=== PATIENT | female | born 1995 | race African-American/Black ===

== ENCOUNTER 2024-03-12 08:00 | Outpatient (CLI) | payer MEDICAID ==
[2024-03-12 17:44] LABS: BILIRUBIN,URINE NEGATIVE (NEGATIVE); GLUCOSE, URINE (UA) NEGATIVE (NEGATIVE); KETONES,URINE (UA) NEGATIVE (NEGATIVE); LEUKOCYTE ESTERASE, URINE NEGATIVE (NEGATIVE); NITRITE,URINE NEGATIVE (NEGATIVE); OCCULT BLOOD,URINE NEGATIVE (NEGATIVE); PROTEIN,URINE NEGATIVE (NEGATIVE); UROBILINOGEN,URINE 0.2 (NORMAL) E.U./dL (NORMAL)
[2024-03-12 17:48] LABS: CLARITY,URINE CLEAR (CLEAR)
[2024-03-12 18:09] LABS: BACTERIA,URINE None Seen /HPF (None Seen); RBC,URINE 0-5 /HPF (0-5); SQUAMOUS EPITHELIAL CELL,UR NONE SEEN (<= Few); WBC,URINE 0-3 /HPF (0-5)
== END 2024-03-12 23:59 | disposition home or self-care (01) ==
LOC: LAB.WC 08:00
PROVIDERS: ATTEND Nurse Practitioner
DX: Z34.80 Encounter for supervision of other normal pregnancy, unspecified trimester (principal)
CPT/HCPCS: 36415; 81001; 87086

== ENCOUNTER 2024-03-25 15:51 | Outpatient (CLI) | payer MEDICAID ==
[2024-03-25 16:18] LABS: BASOPHILS % (AUTO) 0.1 %; EOSINOPHILS # (AUTO) 0.1 10^3/uL (0.0-0.7); EOSINOPHILS % (AUTO) 0.9 %; HCT - HEMATOCRIT 35.7 % (37.0-47.0); HGB - HEMOGLOBIN 12.3 g/dL (12.0-16.0); LYMPHOCYTES # (AUTO) 2.3 10^3/uL (1.5-3.5); LYMPHOCYTES % (AUTO) 27.2 %; MEAN CORPUSCULAR HEMOGLOBIN 28.9 pg (27.0-31.0); MEAN CORPUSCULAR HGB CONC 34.5 g/dL (32.0-36.0); MEAN PLATELET VOLUME 10.6 fL (7.9-10.8); MONOCYTES # (AUTO) 0.7 10^3/uL (0.0-1.0); MONOCYTES % (AUTO) 8.2 %; NEUTROPHILS # (AUTO) 5.5 10^3/uL (1.5-6.6); NEUTROPHILS % (AUTO) 63.4 %; PLT - PLATELET COUNT 203 10^3/uL (130-450); RED BLOOD COUNT 4.25 10^6/uL (4.20-5.40); RED CELL DISTRIBUTION WIDTH 12.4 % (12.0-15.0); WHITE BLOOD COUNT 8.6 x10^3/uL (4.8-10.8)
[2024-03-25 16:25] LABS: MAGNESIUM 1.8 mg/dL (1.7-2.3)
[2024-03-25 16:29] LABS: CREATININE,URINE 74.6 mg/dL; PROTEIN/CREATININE RATIO,URINE 0.1 (<=0.2)
[2024-03-25 16:31] LABS: ALBUMIN 4.4 g/dL (3.2-5.5); ALBUMIN/GLOBULIN RATIO 1.5 (1.0-2.2); BILIRUBIN,TOTAL 0.4 mg/dL (0.2-1.0); CALCIUM 9.5 mg/dL (8.5-10.3); CREATININE 0.6 mg/dL (0.6-1.3); POTASSIUM 3.5 mmol/L (3.5-4.5); TOTAL PROTEIN 7.3 g/dL (6.4-8.9)
[2024-03-25 20:48] LABS: ESTIMATED AVERAGE GLUCOSE 85 mg/dL (70-100); HEMOGLOBIN A1c% 4.6 % (4.27-6.07)
[2024-03-26 02:08] LABS: RPR Non Reactive (Non Reactive)
[2024-03-26 03:10] LABS: HBsAG SCREEN Negative (Negative)
[2024-03-26 04:09] LABS: HIV SCREEN 4TH GENERATION Non Reactive (Non Reactive)
[2024-03-26 09:10] LABS: VARICELLA-ZOSTER AB IGG 399 index (Immune >165)
[2024-03-27 00:07] LABS: HCV AB Non Reactive (Non Reactive)
== END 2024-03-25 15:52 | disposition home or self-care (01) ==
LOC: LAB 15:51
PROVIDERS: ATTEND Obstetrics & Gynecology
DX: O99.891 Other specified diseases and conditions complicating pregnancy (principal); R53.83 Other fatigue; Z36.89 Encounter for other specified antenatal screening
CPT/HCPCS: 36415; 80053; 82570; 82728; 83036; 83735; 84156; 85025; 86592; 86762; 86787; 86803; 86850; 86900; 86901; 87340; 87389

== ENCOUNTER 2024-04-16 08:00 | Outpatient (CLI) | payer MEDICAID ==
[2024-04-16 19:06] LABS: CHLAMYDIA TRACHOMATIS DNA NEGATIVE (NEGATIVE); NEISSERIA GONORRHOEAE DNA NEGATIVE (NEGATIVE); TRICHOMONAS VAGINALIS DNA NEGATIVE (NEGATIVE)
== END 2024-04-16 23:59 | disposition home or self-care (01) ==
LOC: LAB.WC 08:00
PROVIDERS: ATTEND Obstetrics & Gynecology
DX: Z11.3 Encounter for screening for infections with a predominantly sexual mode of transmission (principal)
CPT/HCPCS: 87491; 87591; 87661

== ENCOUNTER 2024-05-07 11:11 | Outpatient (CLI) | payer MEDICAID | END 2024-05-07 11:12 | disposition home or self-care (01) | LOC: LAB 11:11 | PROVIDERS: ATTEND Obstetrics & Gynecology | DX: Z34.80 Encounter for supervision of other normal pregnancy, unspecified trimester (principal); Z36.0 Encounter for antenatal screening for chromosomal anomalies ==

== ENCOUNTER 2024-05-10 12:33 | Emergency (ER) | payer MEDICAID ==
--- NOTE | 2024-05-10 13:09 | ED Physician Documentation ---
History of Present Illness - Stated complaint Stated Complaint: numbness - Chief complaint Chief Complaint: General - Additonal information Additional information: 28-year-old female presents emergency department for right sided numbness. 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 Patient says that she has had 4 TIAs about 2 years ago she was hospitalized at a hospital in [place] for about 3 to 4 days. She is currently 14 weeks G5, P3 and says that her last TIA was not while she was . She is that she is not taking any antiplatelet medication for this history of TIA. Patient says today around 10 AM she started to experience severe worsening right numbness and right sided body weakness and started to lose her right peripheral vision. No chest pain no shortness of breath. PD PAST MEDICAL HISTORY - Past Medical History Past Medical History: No Cardiovascular: None Respiratory: None Neuro: TIA Endocrine/Autoimmune: None GI: None TICKET WRITER: None : None HEENT: None Psych: None Musculoskeletal: None Derm: None - Past Surgical History Past Surgical History: No - Present Medications Home Medications: Ambulatory Orders Medication Instructions Recorded Confirmed Aspirin [Aspirin EC] 1 tab PO DAILY 05/10/24 05/10/24 Cholecalciferol (Vitamin D3) 1 cap PO DAILY 05/10/24 05/10/24 [Vitamin D3] Ondansetron HCl 1 tab PO PRN PRN 05/10/24 05/10/24 Pnv No.95/Ferrous Fum/Folic AC 1 tab PO DAILY 05/10/24 05/10/24 [ Caplet] - Allergies Allergies/Adverse Reactions: Allergies Allergy/AdvReac Type Severity Reaction Status Date / Time No Known Drug Allergies Allergy Verified 05/10/24 12:52 - Social History Does the pt smoke?: No Smoking Status: Never smoker PD ED PE NORMAL - Vitals Vital signs reviewed: Yes - General General: Alert and oriented X 3, No acute distress, Well developed/nourished - HEENT HEENT: Atraumatic, PERRL, EOMI - Neck Neck: Supple, no meningeal sign - Cardiac Cardiac: RRR - Respiratory Respiratory: No respiratory distress - Abdomen Abdomen: Soft, Non tender - Derm Derm: Normal color, Warm and dry, No rash - Extremities Extremities: No deformity, No edema, No calf tenderness / cord - Neuro Neuro: Alert and oriented X 3 PD ED PE EXPANDED - Neuro Neuro: Alert and Oriented X 3, Normal Speech, Weakness, Abnormal sensation, Right face, RUE, RLE, Normal speech. No: Normal motor, Normal Sensation, Normal gait Results - Vitals Vitals: Vital Signs - 24 hr 05/10/24 05/10/24 05/10/24 12:46 12:52 13:48 Temperature 36.4 C L Heart Rate 81 88 93 Respiratory 20 18 17 Rate Blood Pressure 126/91 H 117/82 H 113/75 O2 Saturation 100 100 98 05/10/24 05/10/24 05/10/24 14:00 14:30 15:00 Temperature Heart Rate 73 74 100 Respiratory 22 18 18 Rate Blood Pressure 133/91 H 133/83 H 128/82 H O2 Saturation 100 98 100 05/10/24 17:07 Temperature Heart Rate 90 Respiratory 18 Rate Blood Pressure 118/76 O2 Saturation 100 Oxygen O2 Source Room air - Labs Labs: Laboratory Tests 05/10/24 05/10/24 05/10/24 13:05 13:05 13:05 WBC 8.2 RBC 3.93 L Hgb 11.6 L Hct 33.4 L MCV 85.0 MCH 29.5 MCHC 34.7 RDW 13.5 Plt Count 193 MPV 11.0 H Neut # (Auto) 5.5 Lymph # (Auto) 2.0 [place] # (Auto) 0.6 Eos # (Auto) 0.1 Baso # (Auto) 0.0 Absolute Nucleated RBC 0.00 Nucleated RBC % 0.0 PT INR Sodium 134 L Potassium 3.5 Chloride 104 Carbon Dioxide 22 Anion Gap 8.0 BUN 4 L Creatinine 0.4 L Estimated GFR (MDRD) 229 Glucose 78 Calcium 9.2 Magnesium 1.7 Total Bilirubin 0.4 AST 12 ALT 10 Alkaline Phosphatase 47 Total Protein 6.8 Albumin 3.9 Globulin 2.9 Albumin/Globulin Ratio 1.3 Lipase 11 Urine Color YELLOW Urine Clarity CLEAR Urine pH 6.0 Ur Specific Natalia 1.020 Urine Protein NEGATIVE Urine Glucose (UA) NEGATIVE Urine Ketones 15 H Urine Occult Blood NEGATIVE Urine Nitrite NEGATIVE Urine Bilirubin NEGATIVE Urine Urobilinogen 0.2 (NORMAL) Ur Leukocyte Esterase NEGATIVE Ur Microscopic Review NOT INDICATED Urine Culture Comments NOT INDICATED 05/10/24 13:15 WBC RBC Hgb Hct MCV MCH MCHC RDW Plt Count MPV Neut # (Auto) Lymph # (Auto) [place] # (Auto) Eos # (Auto) Baso # (Auto) Absolute Nucleated RBC Nucleated RBC % PT 11.8 INR 1.1 Sodium Potassium Chloride Carbon Dioxide Anion Gap BUN Creatinine Estimated GFR (MDRD) Glucose Calcium Magnesium Total Bilirubin AST ALT Alkaline Phosphatase Total Protein Albumin Globulin Albumin/Globulin Ratio Lipase Urine Color Urine Clarity Urine pH Ur Specific [place]ia Urine Protein Urine Glucose (UA) Urine Ketones Urine Occult Blood Urine Nitrite Urine Bilirubin Urine Urobilinogen Ur Leukocyte Esterase Ur Microscopic Review Urine Culture Comments - Rads (name of study) headt ct w/o Relevant Findings:: Final report received, EMP independent interpretation of test, Other (no acute abnormal findings) ct angio head and neck Relevant Findings:: Final report received, EMP independent interpretation of test, Other (no acute head or neck arterial findings) PD Medical Decision Making - ED course ED course: 28-year-old female with history of TIAs presents to the emergency department for right sided weakness and loss of right peripheral vision and numbness to right side of body. Code stroke was activated head CT without was complete and no acute abnormal findings are visualized I did speak with SUPERVISOR EDGING before making the call to order the head CT and the decision was made with OB to pursue CT with con for CT angio of head and neck as well as head CT without for the safety of the patient. No acute findings were also visualized on the CT angio head and neck no arterial abnormalities in the head or neck. Her original NIH score was 8 but since she has been here in the emergency department her symptoms have significantly improved and her NIH score is now 1. I spoke with on-call telestroke and because her symptoms have improved so significantly I decision was made to hold off on giving TNK. Patient was given a liter of IV fluids as well as Tylenol for her headache her symptoms have significantly improved. Report was given to Dr. Coles who is further managing patient care if patient's symptoms continue to improve this is most likely a complex migraine and patient is safe to discharge if symptoms come back or get any worse or do not improve then she would benefit from possible MRI. Departure - Departure Disposition: 01 Home, Self Care Clinical Impression: Migraine, Condition: Good Instructions: ED Headache Migraine, ED Preg Established Normal Sxs Follow-Up: your,doctor in 1 week [Other] Comments: You appear to have had a complex migraine today. As we discussed your angiogram and head CT did not show any acute abnormalities. You are seen by neurology as well. Your symptoms have all resolved. Please follow-up with your doctor for further care and return if you worsen. Forms: PCP List Discharge Date/Time: 05/10/24 17:07
[2024-05-10] MEDS ORDERED: iohexoL-300 100 ML VIAL ONE (13:28)
[2024-05-10 13:32] LABS: BASOPHILS % (AUTO) 0.1 %; EOSINOPHILS # (AUTO) 0.1 10^3/uL (0.0-0.7); EOSINOPHILS % (AUTO) 0.7 %; HCT - HEMATOCRIT 33.4 % (37.0-47.0); HGB - HEMOGLOBIN 11.6 g/dL (12.0-16.0); LYMPHOCYTES % (AUTO) 24.1 %; MEAN CORPUSCULAR HEMOGLOBIN 29.5 pg (27.0-31.0); MEAN CORPUSCULAR HGB CONC 34.7 g/dL (32.0-36.0); MONOCYTES # (AUTO) 0.6 10^3/uL (0.0-1.0); MONOCYTES % (AUTO) 7.3 %; NEUTROPHILS # (AUTO) 5.5 10^3/uL (1.5-6.6); NEUTROPHILS % (AUTO) 67.1 %; PLT - PLATELET COUNT 193 10^3/uL (130-450); RED BLOOD COUNT 3.93 10^6/uL (4.20-5.40); RED CELL DISTRIBUTION WIDTH 13.5 % (12.0-15.0); WHITE BLOOD COUNT 8.2 x10^3/uL (4.8-10.8)
[2024-05-10 13:41] LABS: INR 1.1 (0.8-1.2); PT - PROTHROMBIN TIME 11.8 secs (9.9-12.6)
[2024-05-10 13:43] LABS: ALBUMIN 3.9 g/dL (3.2-5.5); ALBUMIN/GLOBULIN RATIO 1.3 (1.0-2.2); BILIRUBIN,TOTAL 0.4 mg/dL (0.2-1.0); CALCIUM 9.2 mg/dL (8.5-10.3); CREATININE 0.4 mg/dL (0.6-1.3); MAGNESIUM 1.7 mg/dL (1.7-2.3); POTASSIUM 3.5 mmol/L (3.5-4.5); TOTAL PROTEIN 6.8 g/dL (6.4-8.9)
--- NOTE | 2024-05-10 13:50 | CT Report ---
PROCEDURE: Head W/O Stroke Protocol INDICATIONS: right sided weakness. hx TIA TECHNIQUE: Noncontrast 4.5 mm thick angled axial sections acquired from the foramen magnum to the vertex, with c oronal reformats. For radiation dose reduction, the following was used: automated exposure control, adjustment of mA and/or kV according to patient size. COMPARISON: None. FINDINGS: Image quality: Excellent. CSF spaces: Basal cisterns are patent. No extra-axial fluid collections. Ventricles are normal in size and shape. Brain: No midline shift. No intracranial masses or hemorrhage. Herzog-white matter interface is norm al. Skull and face: Calvarium and visualized facial bones are intact, without suspicious lesions. Sinuses: Visualized sinuses and mastoids are clear. IMPRESSION: No acute intracranial pathology Above discussed with Malorie Cruz DNP at the time of dictation on 05/10/2024 at 1347 hours. This study fulfills neurological imaging criteria for inclusion or exclusion of acute stroke therapie s based on available published neurological imaging guidelines. Reviewed by: Kalpesh Acosta MD on 05/10/2024 1:48 PM PDT Approved by: Kalpesh Acosta MD on 05/10/2024 1:48 PM PDT Station ID: [id number]
--- NOTE | 2024-05-10 14:11 | CT Report ---
PROCEDURE: Angio Head/Neck INDICATIONS: right sided weakness, hx TIA TECHNIQUE: After the administration of intravenous contrast, 1 mm thick sections acquired from the aortic arch t hrough the [place] of [place]. 3-dimensional dvmavlz-woluwbcvl-ppxbexjajd (MIP) and/or volume renderin g reformats were acquired of the central intracranial vasculature and neck separately. For radiation dose reduction, the following was used: automated exposure control, adjustment of mA and/or kV acco rding to patient size. CONTRAST: 80ml [id number] COMPARISON: None. FINDINGS: Image quality: Diagnostic. HEAD CT: Reason for distended CT of the head. HEAD CT ANGIOGRAPHY: Anterior circulation: Intracranial internal carotid arteries are normal in size and flow. The flow within the paired anterior cerebral arteries is normal and symmetric. The flow within the middle cer ebral arteries is normal and symmetric. The anterior communicating artery is seen. No aneurysms are seen. Posterior circulation: Visualized portions of the vertebral arteries demonstrate normal caliber, and join to form a normal appearing basilar artery. Flow within the posterior cerebral arteries is norm al and symmetric. No aneurysms are seen. NECK CT ANGIOGRAPHY: Carotid system: The great vessels demonstrate a conventional anatomy as they arise from the aortic a rch. The origins of the common carotid arteries appear patent. The common carotid arteries demonstr ate normal caliber and courses. The bifurcation regions are both widely patent. The internal caroti d arteries demonstrate normal calibers and courses. Posterior circulation: The origins of the vertebral arteries both appear widely patent. The more forte perior extracranial portions of both vertebral arteries also demonstrate normal courses and calibers. They join to form a normal appearing basilar artery. Soft tissues: Visualized neck soft tissues demonstrate no suspicious abnormalities. Bones: No suspicious bony lesions. Visualized cervical spine appears normally aligned. IMPRESSION: No significant intracranial arterial abnormality is seen. No significant abnormality is seen within the arteries of the neck. The estimate of stenosis included in the report of the imaging study was calculated using the NASCET method Reviewed by: Chirag Roach MD on 05/10/2024 2:09 PM PDT Approved by: Chirag Roach MD on 05/10/2024 2:09 PM PDT Station ID: [id number]
[2024-05-10 14:57] LABS: BILIRUBIN,URINE NEGATIVE (NEGATIVE); GLUCOSE, URINE (UA) NEGATIVE (NEGATIVE); KETONES,URINE (UA) 15 mg/dL (NEGATIVE); LEUKOCYTE ESTERASE, URINE NEGATIVE (NEGATIVE); NITRITE,URINE NEGATIVE (NEGATIVE); OCCULT BLOOD,URINE NEGATIVE (NEGATIVE); PROTEIN,URINE NEGATIVE (NEGATIVE); UROBILINOGEN,URINE 0.2 (NORMAL) E.U./dL (NORMAL)
[2024-05-10 15:22] VITALS: O2SAT 100
[2024-05-10 15:23] LABS: CLARITY,URINE CLEAR (CLEAR)
[2024-05-10] MEDS: SODIUM CHLORIDE 0.9% 1,000 ML IV ONE (15:24)
[2024-05-10] MEDS: ACETAMINOPHEN 500 MG TABLET PO STA (15:26)
[2024-05-10] MEDS: iohexoL-300 100 ML VIAL IVP ONE (15:55)
[2024-05-10] MEDS: diphenhydrAMINE INJ 50 MG/ML VIAL IVP STA (16:10)
[2024-05-10] MEDS: PROMETHAZINE INJ 25 MG in SODIUM CHLORIDE 0.9% 50 ML IV STA (16:11)
--- NOTE | 2024-05-10 16:56 | ED Physician Documentation ---
ED Addendum - Addendum Addendum: 05/10/24 16:53 Patient was signed out to me by Malorie Cruz. Headache resolved. Neurological symptoms resolved. Neurology had been consulted and was thinking this was a complex migraine. Patient is currently fully asymptomatic in the emergency department. No evidence of stroke or TIA. Will have her follow-up with her OB for further care. Patient counseled regarding signs and symptoms for which I believe and urgent re-evaluation would be necessary. Patient with good understanding of and agreement to plan and is comfortable going home at this time This document was made in part using voice recognition software. While efforts are made to proofread this document, sound alike and grammatical errors may occur. Departure - Departure Disposition: Home, Self Care Clinical Impression: Migraine Qualifiers: Migraine type: unspecified Status migrainosus presence: without status migrainosus Intractability: not intractable Qualified Code(s): G43.909 - Migraine, unspecified, not intractable, without status migrainosus Qualifiers: Weeks of gestation: unspecified Qualified Code(s): Z34.90 - Encounter for supervision of normal , unspecified, unspecified trimester Condition: Good Instructions: ED Headache Migraine, ED Preg Established Normal Sxs Follow-Up: your,doctor in 1 week [Other] Comments: You appear to have had a complex migraine today. As we discussed your angiogram and head CT did not show any acute abnormalities. You are seen by neurology as well. Your symptoms have all resolved. Please follow-up with your doctor for further care and return if you worsen. Forms: PCP List
[2024-05-10 17:08] VITALS: BP 118/76
== END 2024-05-10 17:07 | disposition home or self-care (01) ==
LOC: ED 12:33
DX: O26.892 Other specified pregnancy related conditions, second trimester (principal); G43.909 Migraine, unspecified, not intractable, without status migrainosus; Z3A.14 14 weeks gestation of pregnancy; Z79.82 Long term (current) use of aspirin; Z79.899 Other long term (current) drug therapy; Z86.73 Personal history of transient ischemic attack (TIA), and cerebral infarction without residual deficits
CPT/HCPCS: 36415; 70450; 70496; 70498; 80053; 81003; 83690; 83735; 85025; 85610; 93005; 99284; Q9967; 81001; 87086

== ENCOUNTER 2024-10-27 08:05 | Inpatient (IN) ==
[2024-10-27] MEDS ORDERED: NIFEdipine 10 MG CAPSULE PO PRN (09:42)
[2024-10-27] MEDS ORDERED: miSOPROStoL 200 MCG TABLET PR PRN (09:42)
[2024-10-27] MEDS ORDERED: SODIUM CHLORIDE FLUSH 0.9% 10 ML SYRINGE IVP PRN (09:42)
[2024-10-27] MEDS ORDERED: AMPICILLIN 2 GM in SODIUM CHLORIDE 0.9% MINIBAG 100 ML IV ONE (09:42)
[2024-10-27] MEDS ORDERED: TERBUTALINE 1 MG/ML VIAL SUBQ PRN (09:42)
[2024-10-27] MEDS ORDERED: OXYTOCIN/SODIUM CHLORIDE 500 ML IV PRN (09:42)
[2024-10-27] MEDS ORDERED: ACETAMINOPHEN 500 MG TABLET PO PRN (09:42)
[2024-10-27] MEDS ORDERED: LABETALOL 20 MG/4 ML SYRINGE IVP PRN ×3 (09:42)
[2024-10-27] MEDS ORDERED: fentaNYL 100 MCG/2 ML VIAL IVP PRN (09:42)
[2024-10-27] MEDS ORDERED: LACTATED RINGERS 1,000 ML IV PRN (09:42)
[2024-10-27] MEDS ORDERED: TRANEXAMIC ACID IN NACL 1,000 MG/100 ML BAG IV PRN (09:42)
[2024-10-27] MEDS ORDERED: METHYLERGONOVINE 0.2 MG/ML VIAL IM PRN (09:42)
[2024-10-27] MEDS ORDERED: OXYTOCIN 10 UNIT/ML VIAL IM PRN (09:42)
[2024-10-27] MEDS ORDERED: hydrALAZINE INJ 20 MG/ML VIAL IVP PRN (09:42)
[2024-10-27] MEDS ORDERED: miSOPROStoL 200 MCG TABLET BC PRN (09:42)
--- NOTE | 2024-10-27 09:44 | HISTORY & PHYSICAL EXAMINATION ---
Admit History Visit Reason Visit Reason: Other (Elective induction of labor) Smoking Status: Never smoker Other Maternal History Other Maternal History: HPI: Lashay is a 29 yo at 39w1d who is admitted for elective induction of labor. Feeling well today. + irregular contractions. Denies LOF, VB. + FM. 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 last day 10/22 then maternity leave. FOB [place]. [place]. this is first boy - Hemant. 3 girls. H/o depression - sees therapist, no medications. mood much better. Pre- Weight: 220lb BMI: 35.77 Blood type: O+ Antibody: negative CBC: H/H 12.3/35.7 plt 203 RUB:Not Immune * VZV:Immune HBsAg: Neg HepC: NR RPR/AB-EIA: NR HIV: NR PAP:12/15/2021 Normal per pt GC/CT:04/16 negative HSV: denies Genetic testing:[id number] 04/16-neg AFP normal Covid:Not vaccinated, No virus, declines 2023 Flu:2022, declines 2023, given 10/01/24. A1c: 4.6 FAS: ordered 05/07 Placenta: anterior without previa Cord: 3VC RODY: 17.5 cm WNL EFW: 829.6g 53.6% 50gm OGCT: 128 TDAP: 08/30/20 Breast Pump: 3rd trimester H/H 37.2/11.0 PLT 182 GBS: collected 10/01/24 Delivery plan: Did not have an epidural with first 3 deliveries, would like one this time. Contraception: Desires BTL. Consent signed 09/17. Does have CHPW so will have to wait until 10/18 for sterilization. PE: Vitals signs reviewed Gen: NAD CV: RRR Chest: non labored respirations Abd: gravid, non tender. Ext: no evidence of DVT SVE: 1.5/-3 Bedside US: cephalic presentation confirmed monitoring: FHTs: 150s bpm baseline, + accel, - decel, mod variability [place]: rare FHTs: Cat 1 Labs: T&S, CBC reviewed A/P: Lashay is a 29 yo at 39w1d who is admitted for elective induction of labor. - Elective IOL - Gestational anemia - GBS+ - H/o depression - Rh+ - Rubella equivocal - Varicella immune - Desires elective IOL. Consents reviewed and signed. - Will start IOL with vaginal misoprostol. - Start ampicillin for GBS prophylaxis - Pain management per patient request. Nova Ahuja MD HPI Current : Vital Signs Temperature 98.4 F 10/27/24 08:31 Pulse Rate 92 10/27/24 08:31 Respiratory Rate 16 10/27/24 08:31 Blood Pressure 123/81 10/27/24 08:31 Meds/Allgy Home Medications Ambulatory Orders Medication Instructions Recorded Confirmed aspirin 81 mg tablet,delayed 1 tab PO DAILY 05/10/24 10/22/24 release cholecalciferol (vitamin D3) 1,250 1 cap PO DAILY 05/10/24 10/22/24 mcg (50,000 unit) capsule vit no.95-ferrous 1 tab PO DAILY 05/10/24 10/22/24 fumarate 28 mg-folic acid 800 mcg tablet () doxylamine succinate 25 mg tablet 25 mg PO HS PRN sleep #30 tabs 09/17/24 10/22/24 (Unisom (doxylamine)) famotidine 20 mg tablet (Pepcid) 20 mg PO BID PRN heartburn #60 tabs 09/17/24 10/22/24 Allergies Allergies Allergy/AdvReac Type Severity Reaction Status Date / Time No Known Drug Allergies Allergy Verified 08/30/24 11:10 [facility] Medical History Medical History (Updated 10/01/24 @ 20:55 by Violeta Liang MD) History of depression Obesity weighed 300lbs Family History Family History (Updated 08/10/24 @ 12:09 by Raysa Holly LPN) Mother Heart attack Maternal grandmother Heart attack CAD (coronary artery disease) Social History Social History (Updated 09/18/24 @ 16:04 by Violeta Liang MD) Smoking Status: Never smoker Do you dip or chew tobacco?: No Do you vape?: No Patient requests smoking cessation consult: No Initiate information on smoking cessation: No Living arrangement: At home Living Condition: With family Living Situation Details: Lashay's mom born in [place] adopted by family on [place] that adopted over 20 children. Level: Independent Do you feel safe in your home environment?: Yes Suffered physical, verbal, emotional, or financial abuse?: No ETOH Use: None Substance Use: denies use Are you sexually active?: Yes Physical Abdominal Exam Vital Signs: Temp Pulse Resp BP 98.4 F 92 16 123/81 10/27/24 08:31 10/27/24 08:31 10/27/24 08:31 10/27/24 08:31 Plan for Labor Plan For Labor I expect patient to be DC'd or transferred within 96 hours.: Yes Plan for Labor: induction Conclusion/Plan Lab Results Lab results reviewed: Yes 10/27/24 08:40
[2024-10-27 09:48] LABS: BASOPHILS % (AUTO) 0.1 %; EOSINOPHILS # (AUTO) 0.1 10^3/uL (0.0-0.7); EOSINOPHILS % (AUTO) 1.2 %; HCT - HEMATOCRIT 30.3 % (37.0-47.0); HGB - HEMOGLOBIN 9.8 g/dL (12.0-16.0); LYMPHOCYTES # (AUTO) 1.7 10^3/uL (1.5-3.5); LYMPHOCYTES % (AUTO) 25.5 %; MEAN CORPUSCULAR HEMOGLOBIN 25.9 pg (27.0-31.0); MEAN CORPUSCULAR HGB CONC 32.3 g/dL (32.0-36.0); MEAN CORPUSCULAR VOLUME 79.9 fL (81.0-99.0); MEAN PLATELET VOLUME 11.8 fL (7.9-10.8); MONOCYTES # (AUTO) 0.7 10^3/uL (0.0-1.0); MONOCYTES % (AUTO) 9.9 %; NEUTROPHILS # (AUTO) 4.3 10^3/uL (1.5-6.6); NEUTROPHILS % (AUTO) 62.7 %; PLT - PLATELET COUNT 140 10^3/uL (130-450); RED BLOOD COUNT 3.79 10^6/uL (4.20-5.40); RED CELL DISTRIBUTION WIDTH 14.4 % (12.0-15.0); WHITE BLOOD COUNT 6.8 x10^3/uL (4.8-10.8)
[2024-10-27] MEDS ORDERED: SODIUM CHLORIDE FLUSH 0.9% 10 ML SYRINGE IVP SCH (10:00)
[2024-10-27] MEDS: miSOPROStoL 100 MCG TABLET VG SCH (10:01)
[2024-10-27] MEDS ORDERED: AMPICILLIN 1 GM in SODIUM CHLORIDE 0.9% MINIBAG 100 ML IV SCH (14:00)
[2024-10-27] MEDS ORDERED: FAMOTIDINE 20 MG TABLET PO PRN (14:58)
[2024-10-27] MEDS ORDERED: miSOPROStoL 100 MCG TABLET VG SCH ×2 (15:00→19:00)
--- NOTE | 2024-10-27 15:43 | PHARMACY PROGRESS NOTE ---
Best Possible Medication History Admit Date and Time: 10/27/24 [id number] Home Medications Medication Instructions Recorded Confirmed Type vit no.95-ferrous 1 tab PO DAILY 05/10/24 10/27/24 History fumarate 28 mg-folic acid 800 mcg tablet () famotidine 20 mg tablet (Pepcid) 20 mg PO BID PRN heartburn #60 tabs 09/17/24 10/27/24 Rx Processed by: Nursing ([employer], discussed with nursing staff who had just gone over the medications with the patient) Medications reviewed in ED?: No Medication History completed: Yes Patient Interview: Completed Secondary Source(s): Insurance records [facility] Statement: As the person ultimately responsible for medication therapy, providers are able to order a medication from an existing home medication list in [facility] via the "Reconcile Routine" prior to Confirmation of that medication by rn support services. Such practice is discouraged except when the physician, in their clinical judgment, deems that a medical need exists for a medication without regard to previous use.
[2024-10-27] MEDS: AMPICILLIN 2 GM in SODIUM CHLORIDE 0.9% MINIBAG 100 ML IV ONE (19:30)
--- NOTE | 2024-10-27 19:34 | PROVIDER PROGRESS NOTE ---
Labor Progress Note Labor Progress Note Labor Progress Note/Additional Text: S: Feeling some mild back pain with contractions. O: VS reviewed in Centricity SVE: tight 3/30/-3 monitoring: FHTs: 150s bpm baseline, + accel, - decel, mod variability [place]: 2-3 min Cat 1 A/P: 29yo at 39w1d here for elective IOL: - s/p 2 doses misoprostol. Discussed starting pitocin and she is agreeable. - Ampicillin ordered to start this morning, but not started. Requested it be started now. - Repeat SVE in approx 4 hours, consider AROM with next SVE. Nova Ahuja MD
[2024-10-27] MEDS: OXYTOCIN/SODIUM CHLORIDE 500 ML IV SCH (20:45)
[2024-10-28] MEDS: lidocaine 1% 20 ML MDV ID PRN (02:25)
[2024-10-28] MEDS ORDERED: HYDROCORTISONE 1% CREAM 28 GM TUBE TOP PRN (02:42)
[2024-10-28] MEDS ORDERED: WITCH HAZEL/GLYCERIN 1 PAD TOP PRN (02:42)
[2024-10-28] MEDS ORDERED: SIMETHICONE CHEW 80 MG TABLET PO PRN (02:42)
[2024-10-28] MEDS ORDERED: OXYTOCIN/SODIUM CHLORIDE 500 ML IV PRN (02:42)
[2024-10-28] MEDS ORDERED: hydrALAZINE INJ 20 MG/ML VIAL IVP PRN ×2 (02:42)
[2024-10-28] MEDS ORDERED: LABETALOL 20 MG/4 ML SYRINGE IVP PRN ×2 (02:42)
[2024-10-28] MEDS ORDERED: NALOXONE 0.4 MG/ML VIAL IVP PRN (02:42)
[2024-10-28] MEDS ORDERED: MAGNESIUM HYDROXIDE 2,400 MG/30 ML UDC PO PRN (02:42)
[2024-10-28] MEDS ORDERED: oxyCODONE 5 MG TABLET PO PRN (02:42)
[2024-10-28] MEDS ORDERED: NIFEdipine 10 MG CAPSULE PO PRN (02:42)
[2024-10-28] MEDS ORDERED: LABETALOL 5 MG/1 ML 20 ML MDV IVP PRN (02:42)
--- NOTE | 2024-10-28 02:46 | DELIVERY NOTE ---
Delivery Note Labor Labor: positive Augmented by oxytocin Cervical Ripening Method Cervical Ripening Method: positive Misoprostil Presentation Presentation: positive Vertex and MARY - right occiput anterior Nuchal Cord Nuchal Cord: positive Present Amniotic Fluid Description Amniotic Fluid Description: positive Clear Episiotomy Type Episiotomy Type: positive None Laceration Laceration: positive 2nd degree Suture Suture Type: positive Other (Rapide) Suture Size: positive 3-0 [place]: positive Placed in direct skin contact with mother, Stimulated and Warmed sex: positive Male Cord Cord: positive 3 vessels Placenta Placenta: positive Intact and Spontaneous Estimated Blood Loss Estimated Blood Loss (in cc): 100 Post Delivery Events Post Delivery Events: positive No post delivery events Delivery Comments (Free Text/Narrative) Delivery Comments (Free Text/Narrative): I was called to the bedside for patient complete and ready to start pushing. The anterior shoulder delivered easily with maternal effort and gentle downward pressure followed by the posterior shoulder and the remainder of the body. The was placed on the mother's abdomen. After 60 sec the cord was clamped times two and cut. Cord blood collected. Pitocin was started. The placenta was delivered intact. Good uterine tone noted. The small 2nd degree perineal laceration was repaired with 3-0 Rap[place]. Hemostasis observed at completion of procedure.
[2024-10-28] MEDS ORDERED: LACTATED RINGERS 1,000 ML IV SCH (03:00)
[2024-10-28 08:01] LABS: HCT - HEMATOCRIT 31.7 % (37.0-47.0); HGB - HEMOGLOBIN 10.4 g/dL (12.0-16.0); MEAN CORPUSCULAR HEMOGLOBIN 26.1 pg (27.0-31.0); MEAN CORPUSCULAR HGB CONC 32.8 g/dL (32.0-36.0); MEAN CORPUSCULAR VOLUME 79.6 fL (81.0-99.0); MEAN PLATELET VOLUME 11.6 fL (7.9-10.8); RED BLOOD COUNT 3.98 10^6/uL (4.20-5.40); RED CELL DISTRIBUTION WIDTH 14.2 % (12.0-15.0); WHITE BLOOD COUNT 11.9 x10^3/uL (4.8-10.8)
--- NOTE | 2024-10-28 20:47 | PROVIDER PROGRESS NOTE ---
Subjective Prog Note Date Prog Note Date: 10/28/24 Prog Note Time: 17:20 Subjective Pt reports feeling: Improved Subjective: feeling pretty good. breast feeding. and daughters here. ready for sterilization tomorrow am then go home. Current Medications Current Medications Current Medications: Current Medications Generic Name Dose Route Start Last Admin Trade Name Freq PRN Reason Stop Dose Admin Acetaminophen 1,000 mg 10/28/24 02:42 Acetaminophen 500 Mg Tablet PO Q8HR PRN Mild Pain or Fever>38C(100.4F) Docusate Sodium 100 mg 10/28/24 09:00 Docusate Sodium 100 Mg Capsule PO BID MAMI Famotidine 20 mg 10/27/24 14:58 Famotidine 20 Mg Tablet PO BID PRN heartburn Hydralazine HCl 5 - 10 mg 10/27/24 09:42 Hydralazine Inj 20 Mg/Ml Vial IVP Q20M PRN SBP> or= 160 OR DBP> or= 110 Protocol Hydralazine HCl 10 mg 10/28/24 02:42 Hydralazine Inj 20 Mg/Ml Vial IVP .ONCE PRN SBP> or= 160 OR DBP> or= 110 Protocol Hydralazine HCl 5 - 10 mg 10/28/24 02:42 Hydralazine Inj 20 Mg/Ml Vial IVP Q20M PRN SBP >=160 and/or DBP >=110 Protocol Hydrocortisone 1 applic 10/28/24 02:42 Hydrocortisone 1% Cream 28 Gm Tube TOP QID PRN Hemorrhoids Oxytocin/Sodium Chloride 500 mls @ 999 mls/hr 10/27/24 09:42 Pitocin/Sodium Chloride IV PRN PRN POST- HEMORR PREVENTION Protocol 999 MILLIUNIT/MIN Tranexamic Acid 1,000 mg in 100 mls @ 600 mls/hr 10/27/24 09:42 Tranexamic 1,000 Mg/100ml-Nacl IV Q30M PRN EBL >1200mL and within 3hr Ampicillin Sodium 1 gm/ Sodium 100 mls @ 200 mls/hr 10/27/24 14:00 Chloride IV Q4H MAMI Oxytocin/Sodium Chloride 500 mls @ 1 mls/hr 10/27/24 20:00 10/27/24 20:45 Pitocin/Sodium Chloride IV 1 milliunit/min TITR MAMI 1 mls/hr Administration Protocol 1 MILLIUNIT/MIN Oxytocin/Sodium Chloride 500 mls @ 999 mls/hr 10/28/24 02:42 Pitocin/Sodium Chloride IV PRN PRN POST- HEMORR PREVENTION Protocol 999 MILLIUNIT/MIN Ibuprofen 600 mg 10/28/24 02:42 Ibuprofen 600 Mg Tablet PO Q6HR PRN Moderate Pain (Level 4-6) Labetalol HCl 20 - 80 mg 10/27/24 09:42 Labetalol 20 Mg/4 Ml Syringe IVP Q10M PRN SBP> or= 160 OR DBP> or= 110 Protocol Labetalol HCl 20 mg 10/27/24 09:42 Labetalol 20 Mg/4 Ml Syringe IVP .ONCE PRN SBP> or= 160 OR DBP> or= 110 Protocol Labetalol HCl 20 - 40 mg 10/27/24 09:42 Labetalol 20 Mg/4 Ml Syringe IVP Q10M PRN SBP> or= 160 OR DBP> or= 110 Protocol Labetalol HCl 20 - 80 mg 10/28/24 02:42 Labetalol 5 Mg/1 Ml 20 Ml Mdv IVP Q10M PRN SBP> or= 160 OR DBP> or= 110 Protocol Labetalol HCl 20 - 40 mg 10/28/24 02:42 Labetalol 20 Mg/4 Ml Syringe IVP Q10M PRN SBP> or= 160 OR DBP> or= 110 Protocol Labetalol HCl 20 mg 10/28/24 02:42 Labetalol 20 Mg/4 Ml Syringe IVP .ONCE PRN SBP >=160 and/or DBP >=110 Protocol Lidocaine HCl 20 ml 10/27/24 09:42 10/28/24 02:25 Lidocaine 1% 20 Ml Mdv ID 10/30/24 09:42 20 ml .ONCE PRN Administration PERINEAL REPAIR Magnesium Hydroxide 2,400 mg 10/28/24 02:42 Magnesium Hydroxide 2,400 Mg/30 Ml Udc PO Q8HR PRN Constipation Methylergonovine Maleate 0.2 mg 10/27/24 09:42 Methylergonovine 0.2 Mg/Ml Vial IM .ONCE PRN Hemorrhage Misoprostol 600 mcg 10/27/24 09:42 Misoprostol 200 Mcg Tablet BC .ONCE PRN Hemorrhage Misoprostol 800 mcg 10/27/24 09:42 Misoprostol 200 Mcg Tablet ME .ONCE PRN Hemorrhage Naloxone HCl 0.4 mg 10/28/24 02:42 Naloxone 0.4 Mg/Ml Vial IVP .ONCE PRN Opioid Overdose Nifedipine 10 - 20 mg 10/27/24 09:42 Nifedipine 10 Mg Capsule PO Q20M PRN SBP> or= 160 OR DBP> or= 110 Protocol Nifedipine 10 - 20 mg 10/28/24 02:42 Nifedipine 10 Mg Capsule PO Q20M PRN SBP >=160 and/or DBP >=110 Protocol Oxycodone HCl 5 mg 10/28/24 02:42 Oxycodone 5 Mg Tablet PO Q4HR PRN Severe Pain 6-10 Oxytocin 10 unit 10/27/24 09:42 Oxytocin 10 Unit/Ml Vial IM .ONCE PRN Step One if no IV access. Simethicone 80 mg 10/28/24 02:42 Simethicone Chew 80 Mg Tablet PO TID PRN Gas Sodium Chloride 10 ml 10/27/24 09:42 Sodium Chloride Flush 0.9% 10 Ml Syringe IVP PRN PRN NEEDED PER PROVIDER ORDERS Sodium Chloride 10 ml 10/27/24 10:00 Sodium Chloride Flush 0.9% 10 Ml Syringe IVP Q8H MAMI Terbutaline Sulfate 0.25 mg 10/27/24 09:42 Terbutaline 1 Mg/Ml Vial SUBQ .ONCE PRN Tachystole Witch Sada/Glycerin 1 pad 10/28/24 02:42 Witch Sada/Glycerin 1 Pad TOP PRN PRN ITCHING Objective Vital Signs/Intake & Output Reviewed Vital Signs: Yes Vital Signs: Vital Signs x48h Temp Pulse BP 10/28/24 16:00 36.4 C L 74 119/79 Intake & Output: Intake & Output 10/25/24 10/26/24 10/27/24 10/28/24 23:59 23:59 23:59 23:59 Weight (kg) 234 lb Objective General Appearance: positive No acute distress Lab Results 10/28/24 07:54 Other Labs: Lab Results x24hrs 10/28/24 Range/Units 07:54 WBC 11.9 H (4.8-10.8) x10^3/uL RBC 3.98 L (4.20-5.40) 10^6/uL Hgb 10.4 L (12.0-16.0) g/dL Hct 31.7 L (37.0-47.0) % MCV 79.6 L (81.0-99.0) fL MCH 26.1 L (27.0-31.0) pg MCHC 32.8 (32.0-36.0) g/dL RDW 14.2 (12.0-15.0) % Plt Count 151 (130-450) 10^3/uL MPV 11.6 H (7.9-10.8) fL Assessment/Plan Problem List (1) Vaginal delivery: Impression: routine pp care. breast feeding going well so far. (2) Sterilization: Impression: surgery discussed. risks, benefits, alternatives. consent signed.
[2024-10-28] MEDS: DOCUSATE SODIUM 100 MG CAPSULE PO SCH (21:10)
[2024-10-28] MEDS: IBUPROFEN 600 MG TABLET PO PRN (21:10)
[2024-10-29] MEDS ORDERED: BUPIVACAINE 0.25% PF 30 ML VIAL ONE (07:15)
[2024-10-29] MEDS ORDERED: fentaNYL 100 MCG/2 ML VIAL IVP PRN ×2 (07:21→09:35)
[2024-10-29] MEDS ORDERED: HYDROmorphone 0.5 MG/0.5 ML SYRINGE IVP PRN ×2 (07:21→09:35)
[2024-10-29] MEDS ORDERED: ATROPINE ABBOJECT 1 MG/10 ML SYRINGE IVP PRN ×2 (07:21→09:35)
[2024-10-29] MEDS ORDERED: ONDANSETRON 4 MG/2 ML VIAL IVP PRN ×2 (07:21→09:35)
[2024-10-29] MEDS ORDERED: MORPHINE 2 MG/ML CARPUJECT IVP PRN ×2 (07:21→09:35)
[2024-10-29] MEDS ORDERED: NALOXONE 0.4 MG/ML VIAL IVP PRN ×2 (07:21→09:35)
--- NOTE | 2024-10-29 07:26 | ANESTHESIA PROCEDURE NOTE ---
Pre-Anesthesia VS, & Labs Diagnosis Surgical Diagnosis:: Desires sterilization Procedure Procedure: Post Bilateral salpingectomy Vitals Vital Signs: Temp Pulse Resp BP 98.9 C H 73 16 103/68 10/29/24 02:00 10/29/24 02:00 10/29/24 02:00 10/29/24 02:00 NPO NPO: >8 hours Is Patient ?: No Lab Results Current Lab Results: Laboratory Tests 10/28/24 07:54: WBC 11.9 H, RBC 3.98 L, Hgb 10.4 L, Hct 31.7 L, MCV 79.6 L, MCH 26.1 L, MCHC 32.8, RDW 14.2, Plt Count 151, MPV 11.6 H 10/27/24 08:40: WBC 6.8, RBC 3.79 L, Hgb 9.8 L, Hct 30.3 L, MCV 79.9 L, MCH 25.9 L, MCHC 32.3, RDW 14.4, Plt Count 140, MPV 11.8 H, Neut # (Auto) 4.3, Lymph # (Auto) 1.7, Clarke # (Auto) 0.7, Eos # (Auto) 0.1, Baso # (Auto) 0.0, Absolute Nucleated RBC 0.00, Nucleated RBC % 0.0, Blood Type O POSITIVE, Antibody Screen NEGATIVE Lab results reviewed: Yes 10/28/24 07:54 Meds/Allgy Home Medications Ambulatory Orders Medication Instructions Recorded Confirmed vit no.95-ferrous 1 tab PO DAILY 05/10/24 10/27/24 fumarate 28 mg-folic acid 800 mcg tablet () famotidine 20 mg tablet (Pepcid) 20 mg PO BID PRN heartburn #60 tabs 09/17/24 10/27/24 Allergies Allergies Allergy/AdvReac Type Severity Reaction Status Date / Time No Known Drug Allergies Allergy Verified 08/30/24 11:10 [facility] Medical History Medical History (Updated 10/29/24 @ 07:26 by Jocelyne Miller CRNA) History of depression Surgical History Surgical History (Updated 10/29/24 @ 07:26 by Jocelyne Miller CRNA) No pertinent past surgical history Family History Family History (Updated 08/10/24 @ 12:09 by Raysa Holly LPN) Mother Heart attack Maternal grandmother Heart attack CAD (coronary artery disease) Social History Social History (Updated 09/18/24 @ 16:04 by Violeta Liang MD) Smoking Status: Never smoker Do you dip or chew tobacco?: No Do you vape?: No Patient requests smoking cessation consult: No Initiate information on smoking cessation: No Living arrangement: At home Living Condition: With family Living Situation Details: Lashay's mom born in [place] adopted by family on [place] that adopted over 20 children. Level: Independent Do you feel safe in your home environment?: Yes Suffered physical, verbal, emotional, or financial abuse?: No ETOH Use: None Substance Use: denies use Are you sexually active?: Yes Anesthesia Exam (Expanded) Exam General: Alert, Oriented x3 and Cooperative Dental: WNL Mouth Openin Fingerbreadth Neck Mobility: Normal Mallampati classification: II Thyromental Distance: 4-6 cm Plan Problem List (1) Vaginal delivery: (2) Sterilization: Plan Anesthesia Type: Spinal Consent for Procedure(s) Verified and Reviewed: Yes Code Status: Attempt Resuscitation ASA Classification ASA classification: 2-Mild systemic disease Is this case an emergency?: No
[2024-10-29] MEDS ORDERED: fentaNYL 100 MCG/2 ML VIAL ONE (07:29)
[2024-10-29] MEDS ORDERED: MIDAZOLAM 2 MG/2 ML VIAL ONE (07:29)
[2024-10-29] MEDS: CITRIC ACID/SODIUM CITRATE 15 ML UDC PO ONE (07:49)
[2024-10-29] MEDS: ACETAMINOPHEN 500 MG TABLET PO PRN (07:49)
[2024-10-29] MEDS ORDERED: LACTATED RINGERS 1,000 ML IV SCH ×2 (08:00→10:00)
--- NOTE | 2024-10-29 08:18 | HISTORY & PHYSICAL EXAMINATION ---
Chief Complaint Chief Complaint Chief Complaint: desires steriliztion History of Present Illness History of Present Illness HPI Comment/Other: s/p vag delivery 10/28. desires pp sterilization. no changes to H&P otherwise. Meds/Allgy Home Medications Ambulatory Orders Medication Instructions Recorded Confirmed vit no.95-ferrous 1 tab PO DAILY 05/10/24 10/27/24 fumarate 28 mg-folic acid 800 mcg tablet () famotidine 20 mg tablet (Pepcid) 20 mg PO BID PRN heartburn #60 tabs 09/17/24 10/27/24 Allergies Allergies Allergy/AdvReac Type Severity Reaction Status Date / Time No Known Drug Allergies Allergy Verified 08/30/24 11:10 [facility] Medical History Medical History (Updated 10/29/24 @ 07:26 by Jocelyne Miller CRNA) History of depression Surgical History Surgical History (Updated 10/29/24 @ 07:26 by Jocelyne Miller CRNA) No pertinent past surgical history Family History Family History (Updated 08/10/24 @ 12:09 by Raysa Holly LPN) Mother Heart attack Maternal grandmother Heart attack CAD (coronary artery disease) Social History Social History (Updated 09/18/24 @ 16:04 by Violeta Liang MD) Smoking Status: Never smoker Do you dip or chew tobacco?: No Do you vape?: No Patient requests smoking cessation consult: No Initiate information on smoking cessation: No Living arrangement: At home Living Condition: With family Living Situation Details: Lashay's mom born in [place] adopted by family on [place] that adopted over 20 children. Level: Independent Do you feel safe in your home environment?: Yes Suffered physical, verbal, emotional, or financial abuse?: No ETOH Use: None Substance Use: denies use Are you sexually active?: Yes Conclusion/Plan Problem List (1) Vaginal delivery: Plan: yesterday early am, recovering well. (2) Sterilization: Plan: plan for pp tubal today. Lab Results Lab results reviewed: Yes 10/28/24 07:54
[2024-10-29] MEDS ORDERED: oxyCODONE 5 MG TABLET PO PRN (09:22)
[2024-10-29 09:42] VITALS: O2SAT 96
[2024-10-29 09:47] VITALS: TEMP 97.7
--- NOTE | 2024-10-29 11:10 | ANESTHESIA POST OP EVALUATION ---
Anesthesia Post Eval Post Anesthesia Eval Vitals: Last Vital Signs Temp 36.5 C 10/29/24 09:45 Pulse 71 10/29/24 10:00 Resp 18 10/29/24 09:45 BP 112/83 10/29/24 10:00 Pulse Ox 96 10/29/24 09:45 CV Function Including HR & BP: Stable Pain Control: Satisfactory Nausea & Vomiting: Negative Mental Status: Baseline Respiratory Status: Airway Patent Hydration Status: Satisfactory Anesthesia Complications: None
[2024-10-29] MEDS: KETOROLAC 30 MG/ML VIAL IVP SCH (13:02)
[2024-10-29 13:17] VITALS: BP 116/83
--- NOTE | 2024-10-29 15:51 | Labor Flowsheet ---
Labor Flowsheet Datetime Report Generated by CPN: 10/29/2024 15:50 Datetime: 10/29/2024 13:17 VITAL SIGNS NBP Sys/Teena/Mean (mmHg): 116 : 83 : 91 Pulse: 80 Datetime: 10/28/2024 04:10 Stage of : Datetime: 10/28/2024 04:01 PAIN Pain Scale: 3 Datetime: 10/28/2024 03:42 Respirations: 16 Temperature (C): 37.0 Datetime: 10/28/2024 03:17 Membranes Ruptured Date/Time: 10/27/2024 01:09 Datetime: 10/28/2024 02:20 LaborFlag: Labor Datetime: 10/28/2024 02:08 VAGINAL EXAM Dilatation (cm): 10.0 Exam by: [email or web address] Datetime: 10/28/2024 02:02 Vaginal Bleeding: None Cervix, Consistency: Soft Cervix, Position: Anterior Procedures: Sterile Vag Exam Datetime: 10/28/2024 01:59 Frequency (min): 2-3 Quality: Strong Duration (sec): 45-60 FHR Baseline Rate : 130 Accelerations: 15X15 Datetime: 10/28/2024 01:47 COMMUNICATION Communication: RN at Bedside; RN Reviewed Strip Datetime: 10/28/2024 01:19 Resting Tone (Palpate): Relaxed FHR Baseline Changes: No Baseline Change Variability: Moderate 6-25 bpm Decelerations: Variable Category: Category II Datetime: 10/28/2024 01:08 Effacement (%): 100 Station: -1 Membrane Status: Ruptured Membranes Rupture Method: Spontaneous Amniotic Fluid Color: Clear Amniotic Fluid Amount: Small Amniotic Fluid Odor: Normal Datetime: 10/28/2024 01:00 Monitor Interventions for FHR: Ultrasound Adjusted Patient Position/Activity: High Fowlers Datetime: 10/28/2024 00:22 MEDICATIONS Pitocin (milliunits): Increased to @ 4 Datetime: 10/28/2024 00:16 UTERINE ACTIVITY Monitor Mode: External Monitor Interventions for UA: Albers Adjusted Pattern: Normal: <= 5 Contractions in 10 Minutes Pitocin Checklist: At Least 1 Acceleration of 15 bpm x 15 Seconds in 30 Minutes or Adequate Variabi lity; No More than 1 Late Deceleration Occurred in Past 30 Minutes; No More than 2 Variable Decelerat ions > 60 Seconds in Duration and decreasing >60 bpm in 30 minutes; No More than 5 Uterine Contractio ns in 10 Minutes for any 20 Minute Interval; Uterus Palpates Soft between Contractions ASSESSMENT A Monitor Mode: External US Datetime: 10/27/2024 23:59 I/O Interventions: Up to BR Patient Care Comments: voided Datetime: 10/27/2024 23:39 Comfort Measures: Breathing/Relaxation; Coaching Datetime: 10/27/2024 23:31 Antibiotics: Ampicillin IV 1 Gm Datetime: 10/27/2024 22:01 Pain Presence: Intermittent Pain Type: Cramping Pain Location: Back Pain Coping: Talking Through Contractions; Breathing Through Contractions; Declines Medication or E pidural Datetime: 10/27/2024 20:42 PATIENT CARE IV/Blood Work: New IV Bag Hung Datetime: 10/27/2024 19:56 MATERNAL ASSESSMENT Headache: Denies RUQ Epigastric Pain: Denies Datetime: 10/27/2024 18:30 Contraction Comments: pt. reports 2-3 minutes apart, monitor baselined Datetime: 10/27/2024 15:07 Cervical Ripening Agents: Cytotec @ Medication Comments: vag
--- NOTE | 2024-10-29 21:50 | OPERATIVE REPORT ---
Operative Report General Admit Date: 10/27/24 Procedure Data: Operation Date: 10/29/24 08:00 Proposed Procedures p POST- Bilateral Tubal Ligation(Bilateral) - Violeta Liang MD Actual Procedures p POST- Bilateral SALPINGECTOMIES(Bilateral) - Violeta Liang MD Anesthesia Type Spinal Case Staff Anesthesia Provider: Jocelyne Miller Assisting Provider: Florence Taylor Times Into Recovery: 10/29/24 09:21 Procedure Start: 10/29/24 08:45 Procedure End: 10/29/24 09:16 Time out: 10/29/24 08:44 Pre-Op Diagnosis: s/p vaginal delivery with undesired future fertility Post Op Diagnosis: same Procedure Note Intake, IV Amount (ml): 500 Estimated Blood Loss (ml): 10 Output, Urine Amount (ml): 0 Pathology: none. Indications: desires sterilization. sure of decision. 3 girls and now a boy. Findings: normal pp uterus, normal tubes and ovaries. Complications: none Other Other Information/Narrative: Patient had her baby last night without complications. She is NPO now and ready for procedure. She has signed the appropriate consent form more than 30 days ago and again last evening. She is brought to the OR. Spinal is placed. IV sedation is given. She is prepped in normal fashion in supine position. Drapes are placed. Area under umbilicus is injected with marcaine with epi and then incision is made with knife, about 4 cm. Nuvia clamps are used to list the tissue as the incision is made and deepened. The peritoneum is reached and opened. Small Rogers retractor is placed. Left tube is identified and lifted out of the abdomen with a Alessandra clamp. I used the Ligasure to seal and cut the tissue to remove the tube from fimbria to cornua. The tube was passed off. Mesosalpinx was hemostatic. Same procedure done on right. Rogers was removed. Fascia identified and closed with 0 Vicryl suture. Sub q closed with 4-0 Monocryl. The rest of the Marcaine was used as irrigation. The skin was closed with same suture in subcuticular fashion. Dermabond on skin. Patient was awakened and brought to the PACU in stable condition. My patent legal assistant was present thru the entire procedure and was needed to help with retraction, stabilization of tissue.
--- NOTE | 2024-10-29 21:58 | Discharge Summary ---
"Discharge Summary Admit Date: 10/27/24 Discharge Date: 10/29/24 Discharging Provider: Violeta Liang Code Status: Attempt Resuscitation DIAGNOSES Admission Diagnoses: term , encounter for labor induction at term. + GBS, desires sterilization Discharge Diagnoses with Status of Each Condition: delivered without complication, sterilization performed with bilateral salpingectomies. HPI History of Present Illness: 29 yo now 3 presents for elective induction of labor. She desires pp sterilzation CONSULTS | PROCEDURES Procedures: misopostol and oxytocin inductio of labor vaginal delivery mini lap bilateral salpingectomies. HOSPITAL COURSE Hospital Course: Lashay was admitted and misoprostol started vaginally. Ampicillin given for GBS prophylaxis. Oxytocin to augment. AROM after Ampicillin. She labored without epidural. She was complete and pushed a short time to deliver her first boy. Minimal tearing. Healthy baby. no issues. Sterilization performed morning of PPD #1. Under spinal anesthesia mini lap salpingectomies. She was discharged home after recovery. ALLERGIES Allergies Allergy/AdvReac Type Severity Reaction Status Date / Time No Known Drug Allergies Allergy Verified 08/30/24 11:10 MEDICATIONS Ambulatory Orders Medication Instructions Recorded Confirmed vit no.95-ferrous 1 tab PO DAILY 05/10/24 10/27/24 fumarate 28 mg-folic acid 800 mcg tablet () famotidine 20 mg tablet (Pepcid) 20 mg PO BID PRN heartburn #60 tabs 09/17/24 10/27/24 acetaminophen 325 mg tablet 650 mg (2 x 325 mg) PO Q6H PRN 10/29/24 pain #60 tabs docusate sodium 100 mg capsule 100 mg PO BID #60 caps 10/29/24 (Colace) ibuprofen 600 mg tablet 600 mg PO Q6H PRN pain #30 tabs 10/29/24 oxycodone 5 mg tablet 5 mg PO Q6H PRN pain #10 tabs 10/29/24 PHYSICAL EXAM AT DISCHARGE General Appearance: positive No acute distress Respiratory: positive No respiratory distress Cardiovascular: positive Regular rate & rhythm Abdomen: positive Non-tender LABS 10/28/24 07:54 FOLLOW UP Follow Up: in clinic in 1-2 weeks. TIME SPENT Time Spent in Discharge (Minutes): 15 Discharge Plan Discharge Patient Disposition: SKILLED NURSING, Self Care Condition: Good Prescriptions: Continued oxycodone 5 mg tablet 5 mg PO Q6H PRN (Reason: pain) Qty: 10 0RF ibuprofen 600 mg tablet 600 mg PO Q6H PRN (Reason: pain) Qty: 30 1RF acetaminophen 325 mg tablet 650 mg PO Q6H PRN (Reason: pain) Qty: 60 1RF docusate sodium [Colace] 100 mg capsule 100 mg PO BID Qty: 60 0RF PNV cmb#95-ferrous fumarate-FA [] 1 EACH tablet 1 tab PO DAILY famotidine [Pepcid] 20 mg tablet 20 mg PO BID PRN (Reason: heartburn) Qty: 60 2RF Activity Restrictions: pelvic rest x 6 weeks. Diet: Regular Print Language: [place] Patient Instructions: Surgery Anesthesia After, Vaginal After,"
[2024-10-30] MEDS ORDERED: IBUPROFEN 600 MG TABLET PO PRN (10:00)
== END 2024-10-29 15:00 | disposition home or self-care (01) | DRG 798 ==
LOC: WFO 08:05 → FBP 08:10
PROVIDERS: ADMIT Obstetrics & Gynecology; ATTEND Obstetrics & Gynecology
DX: Z37.0 Single live birth; Z79.899 Other long term (current) drug therapy; Z30.2 Encounter for sterilization; O69.81X0 Labor and delivery complicated by cord around neck, without compression, not applicable or unspecified; O70.1 Second degree perineal laceration during delivery; O99.824 Streptococcus B carrier state complicating childbirth; Z3A.39 39 weeks gestation of pregnancy; Z79.82 Long term (current) use of aspirin; O99.214 Obesity complicating childbirth